=== PATIENT | male | born 1990 | race Caucasian/White ===

== ENCOUNTER 2017-09-03 01:33 | Emergency (ER) | payer SELFPAY ==
[~2017-09-03] VITALS: Ht 167.6 cm; Wt 80.0 kg
[2017-09-03 01:45] VITALS: BP 149/98
== END 2017-09-03 07:42 | disposition left against medical advice (07) ==
LOC: ER 07:41
DX: Z53.21 Procedure and treatment not carried out due to patient leaving prior to being seen by health care provider (principal)
CPT/HCPCS: 93005; 99281